=== PATIENT | female | born 1985 | race American Indian/Alaskan Native ===

== ENCOUNTER 2017-01-12 22:34 | Emergency (ER) | payer MEDICAID ==
[2017-01-13 00:29] LABS: Basophils % (Auto) 0.4 % (0.0-1.8); Eosinophils % (Auto) 6.7 % (0.0-4.3); Hematocrit 37.9 % (30.3-42.9); Hemoglobin 12.6 gm/dl (10.1-14.3); Mean Corpuscular HGB Conc 33 % (30-34); Mean Corpuscular Hemoglobin 32 pg (28-32); Mean Corpuscular Volume 96 fl (79-97); Platelet Count 242 K/mm3 (140-440); Red Blood Count 3.94 M/mm3 (3.65-5.03); Red Cell Distribution Width 12.9 % (13.2-15.2); White Blood Count 8.4 K/mm3 (4.5-11.0)
[2017-01-13 00:44] LABS: Alanine Aminotransferase 11 units/L (7-56); Albumin 4.2 g/dL (3.9-5); Albumin/Globulin Ratio 1.8 %; Alkaline Phosphatase 50 units/L (35-129); Anion Gap 17 mmol/L; BUN/Creatinine Ratio 26.66; Blood Urea Nitrogen 16 mg/dL (7-17); Calcium 8.8 mg/dL (8.4-10.2); Carbon Dioxide 23 mmol/L (22-30); Chloride 102.5 mmol/L (98-107); Glucose 95 mg/dL (65-100); Lipase 30 units/L (13-60); Potassium 3.8 mmol/L (3.6-5.0); Sodium 139 mmol/L (137-145); Total Protein 6.6 g/dL (6.3-8.2)
[2017-01-13 02:31] VITALS: BP 92/51
[2017-01-13 03:20] LABS: Bilirubin,Urine NEG (Negative); Blood,Urine NEG (Negative); Ketones,Urine TR mg/dL (Negative); Leukocyte Esterase,Urine NEG (Negative); Mucus,Urine 2+ /HPF; Nitrite,Urine NEG (Negative); Protein,Urine <15 mg/dL mg/dL (Negative); Urobilinogen,Urine < 2.0 mg/dL (<2.0)
--- NOTE | 2017-01-13 05:04 | Ultrasound Report ---
FINAL REPORT PROCEDURE: US OB TRANSVAGINAL TECHNIQUE: Real-time transabdominal and transvaginal sonography of the uterus, placenta, amniotic fluid, adnexa, and fetus was performed with image documentation. Measurements were obtained to determine age/size. M-mode Doppler was used to document heartbeat. CPT 33001 and 63777 HISTORY: abd pain COMPARISON: No prior studies are available for comparison. FINDINGS: Within the uterus there is a small gestational sac. The gestational sac size of 3 millimeters corresponds to gestational age of less than 5 weeks. No yolk sac or pole is seen at this time. There is a small cyst on the right ovary this measures 12 millimeters. There is a small cyst on the left ovary this measures 24 millimeters. No fluid in the lower pelvis. The findings are most consistent with an early intrauterine . Followup studies including serial beta HCG levels and repeat ultrasound in approximately 14 days would be appropriate. IMPRESSION: There is a small gestational sac within the uterus corresponding to a gestational age of less than 5 weeks. No pole is seen at this time. Repeat studies including repeat ultrasound in approximately 14 days would be appropriate. Small cysts are identified on each ovary as described.
--- NOTE | 2017-01-13 05:05 | Ultrasound Report ---
FINAL REPORT PROCEDURE: US OB transabdominal and transvaginal TECHNIQUE: Real-time transabdominal and transvaginal sonography of the uterus, placenta, amniotic fluid, adnexa, and fetus was performed with image documentation. Measurements were obtained to determine age/size. M-mode Doppler was used to document heartbeat. CPT 79197 and 18725 HISTORY: abd pain COMPARISON: No prior studies are available for comparison. FINDINGS: Within the uterus there is a small gestational sac. The gestational sac size of 3 millimeters corresponds to gestational age of less than 5 weeks. No yolk sac or pole is seen at this time. There is a small cyst on the right ovary this measures 12 millimeters. There is a small cyst on the left ovary this measures 24 millimeters. No fluid in the lower pelvis. The findings are most consistent with an early intrauterine . Followup studies including serial beta HCG levels and repeat ultrasound in approximately 14 days would be appropriate. IMPRESSION: There is a small gestational sac within the uterus corresponding to a gestational age of less than 5 weeks. No pole is seen at this time. Repeat studies including repeat ultrasound in approximately 14 days would be appropriate. Small cysts are identified on each ovary as described.
== END 2017-01-13 02:25 | disposition left against medical advice (07) ==
LOC: ED 22:34
DX: R10.30 Lower abdominal pain, unspecified (principal); Z53.21 Procedure and treatment not carried out due to patient leaving prior to being seen by health care provider
CPT/HCPCS: 36415; 76801; 76817; 80053; 81001; 81025; 83690; 85025

== ENCOUNTER 2017-05-15 17:01 | Emergency (ER) | payer MEDICAID ==
[2017-05-15] MEDS ORDERED: NACL 0.9% 500 ML 500 ML IV ONE (18:38)
[2017-05-15] MEDS ORDERED: TYLENOL PO ONE (18:45)
[2017-05-15] MEDS ORDERED: NACL 0.9% 1000 ML 1,000 ML IV ONE (18:46)
[2017-05-15] MEDS ORDERED: REGLAN IV ONE (18:46)
[2017-05-15] MEDS ORDERED: BENADRYL IV ONE (18:47)
[2017-05-15] MEDS ORDERED: BENADRYL ONE (18:50)
[2017-05-15] MEDS ORDERED: TYLENOL ONE (18:51)
[2017-05-15] MEDS ORDERED: NACL 0.9% 1000 ML 1,000 ML ONE (18:51)
[2017-05-15 19:23] LABS: Basophils % (Auto) 0.5 % (0.0-1.8); Eosinophils % (Auto) 0.5 % (0.0-4.3); Hematocrit 40.9 % (30.3-42.9); Hemoglobin 13.8 gm/dl (10.1-14.3); Mean Corpuscular HGB Conc 34 % (30-34); Mean Corpuscular Hemoglobin 32 pg (28-32); Mean Corpuscular Volume 94 fl (79-97); Platelet Count 180 K/mm3 (140-440); Red Blood Count 4.33 M/mm3 (3.65-5.03); Red Cell Distribution Width 12.7 % (13.2-15.2); White Blood Count 10.3 K/mm3 (4.5-11.0)
[2017-05-15 19:34] LABS: INR 1.24 (0.87-1.13)
[2017-05-15 19:38] LABS: Bacteria,Urine 2+ /HPF (Negative); Bilirubin,Urine NEG (Negative); Blood,Urine MOD (Negative); Ketones,Urine TR mg/dL (Negative); Leukocyte Esterase,Urine LG (Negative); Mucus,Urine FEW /HPF; Nitrite,Urine NEG (Negative)
[2017-05-15 19:52] LABS: Albumin 4.3 g/dL (3.9-5); Chloride 96.3 mmol/L (98-107); Potassium 3.7 mmol/L (3.6-5.0); Sodium 140 mmol/L (137-145)
[2017-05-15 20:09] LABS: Alanine Aminotransferase 13 units/L (7-56); Albumin/Globulin Ratio 1.2 %; Alkaline Phosphatase 64 units/L (35-129); Anion Gap 22 mmol/L; BUN/Creatinine Ratio 21.25; Blood Urea Nitrogen 17 mg/dL (7-17); Carbon Dioxide 25 mmol/L (22-30); Glucose 95 mg/dL (65-100)
--- NOTE | 2017-05-15 20:23 | XRay Report ---
FINAL REPORT EXAM: XR CHEST 1V AP HISTORY: possible Sepsis TECHNIQUE: Single-view chest PRIORS: None. FINDINGS: No focal consolidations are seen in the lungs.The cardiomediastinal silhouette is within normal limits for size and contour. No acute osseous abnormality is identified. IMPRESSION: 1. No definite radiographic evidence of acute cardiopulmonary disease. 2. No focal infiltrate is identified.
--- NOTE | 2017-05-15 21:41 | Emergency Department Report ---
ED General Adult HPI - General Chief complaint: Headache Stated complaint: MIGRAINE Time Seen by Provider: 05/15/17 18:49 Source: patient Mode of arrival: Ambulatory Limitations: No Limitations - History of Present Illness Initial comments: Patient is a 31-year-old female past medical history of migraine patient states headache is severe. In the right temporal area and this amount of radiates to her back. She says the pain is 9 out of 10 light and noise makes the pain worse dark and quiet makes it better. Headache has been going on for the last 4 days it was gradual in onset. She states that this headache is similar to her migraines that she's had in the past. Patient denies any nausea or vomiting. Patient also states that she's had a fever and fatigue. Patient denies any vaginal discharge or dysuria. Patient also has been having some general malaise. Severity scale (0 -10): 8 - Related Data Previous Rx's Medication Instructions Recorded Last Taken Type Butalb/Acetamin/Caff 50-325-40 1 tab PO Q6HR PRN #15 tab 05/15/17 Unknown Rx [Fioricet] Sulfamethoxazole/Trimethoprim 1 each PO BID #10 tablet 05/15/17 Unknown Rx [Bactrim DS TAB] Allergies Allergy/AdvReac Type Severity Reaction Status Date / Time No Known Allergies Allergy Unverified 01/12/17 23:53 ED Review of Systems ROS: Stated complaint: MIGRAINE Other details as noted in HPI Constitutional: fever, malaise. denies: chills Eyes: denies: eye pain, eye discharge, vision change ENT: denies: ear pain, throat pain Respiratory: denies: cough, shortness of breath, wheezing Cardiovascular: denies: chest pain, palpitations Endocrine: no symptoms reported Gastrointestinal: denies: abdominal pain, nausea, diarrhea Genitourinary: denies: urgency, dysuria, discharge Musculoskeletal: denies: back pain, joint swelling, arthralgia Skin: denies: rash, lesions Neurological: headache. denies: weakness, paresthesias Psychiatric: denies: anxiety, depression Hematological/Lymphatic: denies: easy bleeding, easy bruising ED Past Medical Hx - Past Medical History Previous Medical History?: No - Surgical History Past Surgical History?: No - Social History Smoking Status: Former Smoker Substance Use Type: None - Medications Home Medications: Home Medications Medication Instructions Recorded Confirmed Last Taken Type Butalb/Acetamin/Caff 50-325-40 1 tab PO Q6HR PRN #15 tab 05/15/17 Unknown Rx [Fioricet] Sulfamethoxazole/Trimethoprim 1 each PO BID #10 tablet 05/15/17 Unknown Rx [Bactrim DS TAB] ED Physical Exam - General Limitations: No Limitations General appearance: alert, in no apparent distress - Head Head exam: Present: atraumatic, normocephalic - Eye Eye exam: Present: normal appearance - ENT ENT exam: Present: mucous membranes moist - Neck Neck exam: Present: normal inspection - Respiratory Respiratory exam: Present: normal lung sounds bilaterally. Absent: respiratory distress - Cardiovascular Cardiovascular Exam: Present: regular rate, normal rhythm. Absent: systolic murmur, diastolic murmur, rubs, gallop - GI/Abdominal GI/Abdominal exam: Present: soft, normal bowel sounds - Extremities Exam Extremities exam: Present: normal inspection - Back Exam Back exam: Present: normal inspection - Neurological Exam Neurological exam: Present: alert, oriented X3 - Psychiatric Psychiatric exam: Present: normal affect, normal mood - Skin Skin exam: Present: warm, dry, intact, normal color. Absent: rash ED Course Vital Signs 05/15/17 05/15/17 05/15/17 17:13 17:15 18:36 Temperature 100.6 F H 100.6 F H 101.5 F H Pulse Rate 97 H 95 H 99 H Respiratory 18 18 22 Rate Blood Pressure 108/70 Blood Pressure 108/70 100/61 [Right] O2 Sat by Pulse 100 100 97 Oximetry - Reevaluation(s) Reevaluation #1: 05/15/17 21:44 Reevaluated the patient her headache is better I will send patient home. ED Medical Decision Making - Lab Data Result diagrams: 05/15/17 18:56 05/15/17 18:56 Lab Results 05/15/17 05/15/17 05/15/17 Range/Units 18:56 18:56 18:56 WBC 10.3 (4.5-11.0) K/mm3 RBC 4.33 (3.65-5.03) M/mm3 Hgb 13.8 (10.1-14.3) gm/dl Hct 40.9 (30.3-42.9) % MCV 94 (79-97) fl MCH 32 (28-32) pg MCHC 34 (30-34) % RDW 12.7 L (13.2-15.2) % Plt Count 180 (140-440) K/mm3 Lymph % (Auto) 12.8 L (13.4-35.0) % [place] % (Auto) 7.8 H (0.0-7.3) % Eos % (Auto) 0.5 (0.0-4.3) % Baso % (Auto) 0.5 (0.0-1.8) % Lymph # 1.3 (1.2-5.4) K/mm3 [place] # 0.8 (0.0-0.8) K/mm3 Eos # 0.1 (0.0-0.4) K/mm3 Baso # 0.1 (0.0-0.1) K/mm3 Seg Neutrophils % 78.4 H (40.0-70.0) % Seg Neutrophils # 8.1 H (1.8-7.7) K/mm3 PT 15.5 H (12.2-14.9) Sec. INR 1.24 H (0.87-1.13) VBG pH (7.320-7.420) Sodium 140 (137-145) mmol/L Potassium 3.7 (3.6-5.0) mmol/L Chloride 96.3 L (98-107) mmol/L Carbon Dioxide 25 (22-30) mmol/L Anion Gap 22 mmol/L BUN 17 (7-17) mg/dL Creatinine 0.8 (0.7-1.2) mg/dL Estimated GFR > 60 ml/min BUN/Creatinine Ratio 21.25 % Glucose 95 (65-100) mg/dL Lactic Acid (0.7-2.0) mmol/L Calcium 9.0 (8.4-10.2) mg/dL Total Bilirubin 1.30 H (0.1-1.2) mg/dL AST 19 (5-40) units/L ALT 13 (7-56) units/L Alkaline Phosphatase 64 (35-129) units/L Total Protein 8.0 (6.3-8.2) g/dL Albumin 4.3 (3.9-5) g/dL Albumin/Globulin Ratio 1.2 % Urine Color (Yellow) Urine Turbidity (Clear) Urine pH (5.0-7.0) Ur Specific [place] (1.003-1.030) Urine Protein (Negative) mg/dL Urine Glucose (UA) (Negative) mg/dL Urine Ketones (Negative) mg/dL Urine Blood (Negative) Urine Nitrite (Negative) Urine Bilirubin (Negative) Urine Urobilinogen (<2.0) mg/dL Ur Leukocyte Esterase (Negative) Urine WBC (Auto) (0.0-6.0) /HPF Urine RBC (Auto) (0.0-6.0) /HPF U Epithel Cells (Auto) (0-13.0) /HPF Urine Bacteria (Auto) (Negative) /HPF Urine Mucus /HPF 05/15/17 05/15/17 05/15/17 Range/Units 18:56 18:56 19:22 WBC (4.5-11.0) K/mm3 RBC (3.65-5.03) M/mm3 Hgb (10.1-14.3) gm/dl Hct (30.3-42.9) % MCV (79-97) fl MCH (28-32) pg MCHC (30-34) % RDW (13.2-15.2) % Plt Count (140-440) K/mm3 Lymph % (Auto) (13.4-35.0) % [place] % (Auto) (0.0-7.3) % Eos % (Auto) (0.0-4.3) % Baso % (Auto) (0.0-1.8) % Lymph # (1.2-5.4) K/mm3 [place] # (0.0-0.8) K/mm3 Eos # (0.0-0.4) K/mm3 Baso # (0.0-0.1) K/mm3 Seg Neutrophils % (40.0-70.0) % Seg Neutrophils # (1.8-7.7) K/mm3 PT (12.2-14.9) Sec. INR (0.87-1.13) VBG pH 7.471 H (7.320-7.420) Sodium (137-145) mmol/L Potassium (3.6-5.0) mmol/L Chloride (98-107) mmol/L Carbon Dioxide (22-30) mmol/L Anion Gap mmol/L BUN (7-17) mg/dL Creatinine (0.7-1.2) mg/dL Estimated GFR ml/min BUN/Creatinine Ratio % Glucose (65-100) mg/dL Lactic Acid 1.20 (0.7-2.0) mmol/L Calcium (8.4-10.2) mg/dL Total Bilirubin (0.1-1.2) mg/dL AST (5-40) units/L ALT (7-56) units/L Alkaline Phosphatase (35-129) units/L Total Protein (6.3-8.2) g/dL Albumin (3.9-5) g/dL Albumin/Globulin Ratio % Urine Color Yellow (Yellow) Urine Turbidity Clear (Clear) Urine pH 6.0 (5.0-7.0) Ur Specific [place] 1.016 (1.003-1.030) Urine Protein 100 mg/dl (Negative) mg/dL Urine Glucose (UA) Neg (Negative) mg/dL Urine Ketones Tr (Negative) mg/dL Urine Blood Mod (Negative) Urine Nitrite Neg (Negative) Urine Bilirubin Neg (Negative) Urine Urobilinogen 4.0 (<2.0) mg/dL Ur Leukocyte Esterase Lg (Negative) Urine WBC (Auto) 44.0 H (0.0-6.0) /HPF Urine RBC (Auto) 4.0 (0.0-6.0) /HPF U Epithel Cells (Auto) < 1.0 (0-13.0) /HPF Urine Bacteria (Auto) 2+ (Negative) /HPF Urine Mucus Few /HPF - Radiology Data Radiology results: report reviewed, image reviewed Chest x-ray: Shows no acute cardiopulmonary disease - Medical Decision Making Chief medical diagnosis: Migraine headache Differential medical diagnosis: Tension headache, viral syndrome, sepsis, urinary tract infection CBC, CMP, lactate, IV fluids, IV Benadryl, urinalysis, chest x-ray Patient's infectious workup is unremarkable show some WBCs in urine. I will treat her as a urinary tract infection and I will also give IV Benadryl and IV Reglan for patient's migraine headache. Patient is feeling better after the medication. I will send patient home with Fioricet and Bactrim K patient return precautions come back to the emergency department. Additional verbal discharge instructions were given. Critical care attestation.: If time is entered above; I have spent that time in minutes in the direct care of this critically ill patient, excluding procedure time. ED Disposition Clinical Impression: Migraine Qualifiers: Migraine type: unspecified Status migrainosus presence: without status migrainosus Intractability: not intractable Qualified Code(s): G43.909 - Migraine, unspecified, not intractable, without status migrainosus UTI (urinary tract infection) Qualifiers: Urinary tract infection type: acute cystitis Hematuria presence: without hematuria Qualified Code(s): N30.00 - Acute cystitis without hematuria Fever Qualifiers: Fever type: unspecified Qualified Code(s): R50.9 - Fever, unspecified Disposition: - TO HOME OR SELFCARE Is pt being admited?: No Does the pt Need Aspirin: No Condition: Stable Instructions: Migraine Headache (ED), Urinary Tract Infection in Women (ED) Prescriptions: Butalb/Acetamin/Caff 50-325-40 [Fioricet] 1 tab PO Q6HR PRN #15 tab PRN Reason: Headache Sulfamethoxazole/Trimethoprim [Bactrim DS TAB] 1 each PO BID #10 tablet Referrals: PRIMARY CARE, [Primary Care Provider] - 3-5 Days
[2017-05-15 22:41] VITALS: BP 101/67
== END 2017-05-15 22:42 | disposition home or self-care (01) ==
LOC: ED 17:01
DX: G43.909 Migraine, unspecified, not intractable, without status migrainosus (principal); N30.00 Acute cystitis without hematuria; R50.9 Fever, unspecified; Z87.891 Personal history of nicotine dependence
CPT/HCPCS: 36415; 71010; 80053; 81001; 82140; 82805; 85025; 85610; 87040; 87076; 87086; 87186; 96361; 96374; 96375; 99284; J1200; J2765; J7030

== ENCOUNTER 2017-12-23 18:48 | Emergency (ER) | payer MEDICAID ==
[2017-12-23 19:43] LABS: Basophils % (Auto) 0.3 % (0.0-1.8); Eosinophils # (Auto) 0.1 K/mm3 (0.0-0.4); Eosinophils % (Auto) 0.9 % (0.0-4.3); Hematocrit 41.2 % (30.3-42.9); Hemoglobin 14.1 gm/dl (10.1-14.3); Lymphocytes # (Auto) 0.7 K/mm3 (1.2-5.4); Lymphocytes % (Auto) 7.8 % (13.4-35.0); Mean Corpuscular HGB Conc 34 % (30-34); Mean Corpuscular Hemoglobin 32 pg (28-32); Mean Corpuscular Volume 94 fl (79-97); Monocytes # (Auto) 0.4 K/mm3 (0.0-0.8); Monocytes % (Auto) 4.5 % (0.0-7.3); Platelet Count 222 K/mm3 (140-440); Red Cell Distribution Width 12.9 % (13.2-15.2)
[2017-12-23 19:56] LABS: Alanine Aminotransferase 30 units/L (7-56); Albumin 4.4 g/dL (3.9-5); BUN/Creatinine Ratio 20; Blood Urea Nitrogen 10 mg/dL (7-17); Calcium 9.1 mg/dL (8.4-10.2); Hemolysis Index 20; Lipase 21 units/L (13-60)
[2017-12-23 21:01] LABS: HCG Qualitative,Urine Negative (Negative)
[2017-12-23 21:05] LABS: Bilirubin,Urine NEG (Negative); Blood,Urine SM (Negative); Color,Urine Yellow (Yellow); Mucus,Urine FEW /HPF; Protein,Urine <15 mg/dL mg/dL (Negative); Urobilinogen,Urine < 2.0 mg/dL (<2.0)
[2017-12-23 21:58] VITALS: BP 124/78
--- NOTE | 2017-12-23 22:41 | Emergency Department Report ---
ED Abdominal Pain HPI - General Chief Complaint: Abdominal Pain Stated Complaint: BACK/ABD PAIN/NAUSEA Time Seen by Provider: 12/23/17 22:40 Source: patient Mode of arrival: Ambulatory Limitations: No Limitations - History of Present Illness Initial Comments: Generally healthy 32-year-old woman with a 36 hour history of gradual onset of generalized abdominal pain, which has somewhat localized to the upper abdomen, and associated with recurrent bouts of nausea and vomiting, and softening of stools, but only once daily and no definite diarrhea. She also has accompanying fever, and generalized myalgias and headache. 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 denies: diarrhea Treatments Prior to Arrival: NSAIDs - Related Data Previous Rx's Medication Instructions Recorded Last Taken Type Butalb/Acetamin/Caff 50-325-40 1 tab PO Q6HR PRN #15 tab 05/15/17 Unknown Rx [Fioricet] Sulfamethoxazole/Trimethoprim 1 each PO BID #10 tablet 05/15/17 Unknown Rx [Bactrim DS TAB] Dicyclomine [Bentyl] 10 mg PO QID PRN #10 capsule 12/24/17 Unknown Rx HYDROcodone/APAP 5-325 [[place] 1 each PO Q6HR PRN #10 tablet 12/24/17 Unknown Rx 5/325] Ondansetron [Zofran ODT TAB] 8 mg PO Q8HR #10 tab.rapdis 12/24/17 Unknown Rx Allergies Allergy/AdvReac Type Severity Reaction Status Date / Time No Known Allergies Allergy Unverified 01/12/17 23:53 ED Review of Systems ROS: Stated complaint: BACK/ABD PAIN/NAUSEA Other details as noted in HPI Constitutional: fever, weakness. denies: chills Eyes: denies: eye pain, eye discharge, vision change ENT: denies: ear pain, throat pain Respiratory: cough (slight, nonproductive). denies: shortness of breath, SOB with exertion, wheezing Cardiovascular: denies: chest pain, palpitations Endocrine: no symptoms reported Gastrointestinal: as per HPI, abdominal pain, nausea. denies: diarrhea Genitourinary: denies: urgency, dysuria, frequency, discharge Musculoskeletal: denies: back pain, joint swelling, arthralgia Skin: denies: rash, lesions Neurological: denies: headache, weakness, paresthesias Psychiatric: denies: anxiety, depression Hematological/Lymphatic: denies: easy bleeding, easy bruising ED Past Medical Hx - Past Medical History Previous Medical History?: Yes Hx Headaches / Migraines: Yes Additional medical history: Urinary tract infections - Surgical History Past Surgical History?: No - Family History Family history: no significant - Social History Smoking Status: Current Every Day Smoker Substance Use Type: None - Medications Home Medications: Home Medications Medication Instructions Recorded Confirmed Last Taken Type Butalb/Acetamin/Caff 50-325-40 1 tab PO Q6HR PRN #15 tab 05/15/17 Unknown Rx [Fioricet] Sulfamethoxazole/Trimethoprim 1 each PO BID #10 tablet 05/15/17 Unknown Rx [Bactrim DS TAB] Dicyclomine [Bentyl] 10 mg PO QID PRN #10 capsule 12/24/17 Unknown Rx HYDROcodone/APAP 5-325 [[place] 1 each PO Q6HR PRN #10 tablet 12/24/17 Unknown Rx 5/325] Ondansetron [Zofran ODT TAB] 8 mg PO Q8HR #10 tab.rapdis 12/24/17 Unknown Rx ED Physical Exam - General Limitations: No Limitations General appearance: alert, in distress (moderate discomfort from abdominal discomfort and cramping) - Head Head exam: Present: atraumatic, normocephalic - Eye Eye exam: Present: normal appearance, PERRL, EOMI - Neck Neck exam: Present: normal inspection. Absent: tenderness, meningismus - Respiratory Respiratory exam: Present: normal lung sounds bilaterally. Absent: respiratory distress, wheezes, rales, rhonchi - Cardiovascular Cardiovascular Exam: Present: regular rate, normal heart sounds. Absent: systolic murmur, diastolic murmur - GI/Abdominal GI/Abdominal exam: Present: soft, tenderness (generalized, nonspecific), normal bowel sounds. Absent: guarding, rebound, organomegaly, mass - Rectal Rectal exam: Present: deferred - Extremities Exam Extremities exam: Present: normal inspection, full ROM - Back Exam Back exam: Present: normal inspection - Neurological Exam Neurological exam: Present: alert, oriented X3, CN II-XII intact - Psychiatric Psychiatric exam: Present: normal affect, normal mood - Skin Skin exam: Present: warm, dry ED Course Vital Signs 12/23/17 12/23/17 19:09 21:56 Temperature 100.1 F H 99.2 F Pulse Rate 96 H 97 H Respiratory 20 17 Rate Blood Pressure 117/68 Blood Pressure 124/78 [Left] O2 Sat by Pulse 97 98 Oximetry - Reevaluation(s) Reevaluation #1: 12/24/17 00:11 Patient significantly improved on recheck at 005 hours, with IV saline rehydration, control of nausea with ondansetron, and control of pain with fentanyl. Labs are stable. ED Medical Decision Making - Lab Data Result diagrams: 12/23/17 19:27 12/23/17 19:27 - Medical Decision Making Patient is clinically stable, improved with rehydration, control of nausea, as well as pain control, and is stable for discharge home, and will be treated with antiemetics, antispasmodics, and mild general pain medication. She will also be given work release for the next 2-3 days. - Differential Diagnosis acute gastroenteritis, nonspecific viral syndrome, influenza, appendicitis Critical Care Time: No Critical care attestation.: If time is entered above; I have spent that time in minutes in the direct care of this critically ill patient, excluding procedure time. ED Disposition Disposition: DC-01 TO HOME OR SELFCARE Is pt being admited?: No Does the pt Need Aspirin: No Condition: Stable Instructions: Abdominal Pain (ED) Additional Instructions: Rest at home, drink plenty of electrolyte rich fluid such as oral rehydration solutions, Pedialyte, or sport drinks to remain hydrated, take medication for nausea, cramping, and generalized pain as prescribed individually. Work release provided for 3 days, which he may return earlier if you're feeling symptomatically better. Prescriptions: Dicyclomine [Bentyl] 10 mg PO QID PRN #10 capsule PRN Reason: Pain HYDROcodone/APAP 5-325 [[place] 5/325] 1 each PO Q6HR PRN #10 tablet PRN Reason: Pain Ondansetron [Zofran ODT TAB] 8 mg PO Q8HR #10 tab.emily Referrals: ESTUARDO DE LEÓN MD [Primary Care Provider] - 3-5 Days Time of Disposition: 00:20
[2017-12-23] MEDS ORDERED: NACL 0.9% 1000 ML 1,000 ML IV ONE (22:51)
[2017-12-23] MEDS ORDERED: ZOFRAN IV ONE (22:51)
[2017-12-23] MEDS ORDERED: SUBLIMAZE IV ONE (22:52)
[2017-12-23] MEDS ORDERED: TYLENOL PO ONE (22:55)
== END 2017-12-24 00:57 | disposition home or self-care (01) ==
LOC: ED 18:48
DX: R10.9 Unspecified abdominal pain (principal); F17.200 Nicotine dependence, unspecified, uncomplicated; G43.909 Migraine, unspecified, not intractable, without status migrainosus
CPT/HCPCS: 36415; 80053; 81001; 81025; 83690; 85025; 96361; 96374; 96375; 99283; J2405; J3010; J7030